=== PATIENT | male | born 1975 | race Two or more races ===

== ENCOUNTER 2020-06-24 02:05 | Emergency (ER) | payer OTHER ==
[2020-06-24 02:13] VITALS: BP 139/87; PULSE 68; TEMP 97.9; BMI 23.4
[2020-06-24] MEDS ORDERED: TETRACAINE 0.5% OPHTH SOLN 2 ML BOTTLE ONE (02:15)
[2020-06-24] MEDS ORDERED: FLUORESCEIN NA 1 EA STRIP ONE (02:16)
[2020-06-24] MEDS ORDERED: ERYTHROMYCIN 0.5% OPHTHALMIC OINTMENT 3.5 GM TUBE ONE (02:23)
--- NOTE | 2020-06-24 02:30 | PDOC ---
History of Present Illness - General Chief Complaint: Eye Problem Stated Complaint: EYES BURNING Time Seen by Provider: 06/24/20 02:06 - History of Present Illness Initial Comments: 06/24/20 02:40 This otherwise healthy 44-year-old man presents with progressive burning pain in his eyes over the last few hours. No history of crusting or discharge. No foreign body or toxin exposure noted; patient notes no change in his vision prior to the onset of his pain. No previous history of this type of pain. Patient states that he was playing cricket during the afternoon; he was wearing sunglasses for part of the time but also was playing without protection on his eyes for part of the time. He also visited the beach later in the day. Other than mild chronic dry eye, no previous history of ophthalmologic issues. On no daily medications No known allergies Non-smoker; no daily alcohol or other recreational drug use Past History - Medical History Allergies/Adverse Reactions: Allergies Allergy/AdvReac Type Severity Reaction Status Date / Time No Known Allergies Allergy Unverified 06/24/20 02:08 Home Medications: Ambulatory Orders Erythromycin 0.5% Eye Ointment [Erythromycin 0.5% Eye Ointment -] 1 applic OU TID #1 tube 06/24/20 Oxycodone HCl/Acetaminophen [Percocet 5-325 mg Tablet] 1 - 2 tab PO Q6H PRN #12 tab MDD 4 tabs 06/24/20 COPD: No - Psycho-Social/Smoking History Smoking History: Never smoked Review of Systems - Review of Systems Able to Perform ROS?: Yes Comments:: 12 point review of systems is negative except for what is noted in the history of present illness *Physical Exam - Vital Signs Last Vital Signs Temp Pulse Resp BP Pulse Ox 97.9 F 68 16 139/87 100 06/24/20 02:09 06/24/20 02:09 06/24/20 02:09 06/24/20 02:09 06/24/20 02:09 - Physical Exam GENERAL:Adult male, alert and oriented x3, mild distress secondary to bilateral eye pain; eyes closed HEAD: Normal with no signs of trauma. EYES: Eye exam difficult secondary to pain; exam continued after placement of tetracaine solution (see below) EXTREMITIES: Normal range of motion, no edema. No clubbing or cyanosis. No erythema, or tenderness. NEUROLOGICAL: Cranial nerves II through XII grossly intact. Normal speech. No focal neurological deficits. MUSCULOSKELETAL: Back non-tender to palpation, no CVA tenderness SKIN: Warm, Dry, normal turgor, no rashes or lesions noted. 2 drops of 0.5% Tetracaine placed in each eye. Patient is able to open his eyes comfortably after this. Mild upper and lower lid edema; moderate conjunctival erythema bilaterally; no crusting or purulent discharge noted Pupils 2 mm equal and reactive to light; no anterior chamber abnormality seen; no corneal clouding evident Fluorescein staining revealed no evidence of large corneal abrasion; faint punctate uptake of stain in bilateral corneas Medical Decision Making - Medical Decision Making Clinical presentation most consistent with ultraviolet keratitis. Likely etiology and treatment discussed with the patient. Erythromycin ophthalmologic ointment placed in each eye. Percocet 5/325, 2 tablets given now for analgesia. Prescription for Percocet 5/325 (#12) to be used for severe pain up to 4 tabs a day sent to his pharmacy. Also, although patient was given small tube of erythromycin ophthalmologic ointment for his use overnight, prescription sent for refill of erythromycin ophthalmologic ointment to be used 4 times a day until seen by guitar maker. Patient does not have an guitar maker and referral information for Drs. Clement/Gordon (office professional for ophthalmology) given to the patient. He should call office at the start of the next business day to make arrangements for follow-up within 1 to 2 days. Discharge - Discharge Information Problems reviewed: Yes Clinical Impression/Diagnosis: UV keratitis Condition: Stable Disposition: HOME - Additional Discharge Information Prescriptions: Erythromycin 0.5% Eye Ointment [Erythromycin 0.5% Eye Ointment -] 1 applic OU TID #1 tube Oxycodone HCl/Acetaminophen [Percocet 5-325 mg Tablet] 1 - 2 tab PO Q6H PRN #12 tab MDD 4 tabs PRN Reason: Severe Pain - Follow up/Referral Referrals: Catalina Clement MD [Staff Physician] - 2 Days - Patient Discharge Instructions Patient Printed Discharge Instructions: DI for Eye Flash Burn Additional Instructions: Erythromycin ointment in each eye 3-4 times a day until seen by guitar maker Acetaminophen/ibuprofen/naproxen as needed for mild to moderate pain Percocet 5/325 1-2 tabs every 6 hours as needed for severe pain Can use lubricating eyedrops in between doses of the antibiotic ointment Call ophthalmology office (Jessica Clement/Gordon) in AM, Thursday, June 25 to arrange follow-up within 1 to 2 days Return to ER if you have persistent severe pain prior to seeing guitar maker - Post Discharge Activity
== END 2020-06-24 02:35 | disposition home or self-care (01) ==
LOC: FER 02:05
DX: H16.133 Photokeratitis, bilateral (principal)
CPT/HCPCS: 99283-25